=== PATIENT | female | born 1960 | race Caucasian/White ===

== ENCOUNTER 2020-07-24 11:00 | Day surgery (SDC) | payer MEDICARE, MEDICAID, OTHER ==
[~2020-07-24 11:00] MED LIST: Lactated Ringers 1,000 ML IV SCH; Midazolam 1 MG/ML 2 ML SDV ONE; Propofol 200 MG/20 ML SDV ONE; Sodium Chloride 0.9% 10 ML Syringe FLUSH PRN
--- NOTE | 2020-07-24 13:16 | PCM.OPNOTE ---
- General Post-Op/Procedure Note Date of Surgery/Procedure: 07/24/20 Operative Procedure(s): Colonoscopy with polypectomy Findings: Sig colon polyp Pre Op Diagnosis: Hx Polyps Post-Op Diagnosis: Same Anesthesia Technique: MAC Primary Surgeon: Marques Lee Anesthesia Provider: Taylor Wiseman Pathology: Sig colon polyp at 20 cm EBL in mLs: 0 Complications: None Condition: Good
--- NOTE | 2020-07-24 14:55 | OR ---
Date of Procedure: 07/24/2020 PREOPERATIVE DIAGNOSIS: History of colon polyps. POSTOPERATIVE DIAGNOSIS: Sigmoid colon polyps. PROCEDURE: Colonoscopy with polypectomy. ANESTHESIA: IV sedation. PROCEDURE IN DETAIL: Patient was brought to the procedure room where she was placed on her left side and IV sedation administered. Digital rectal exam was performed, which was normal. Colonoscope was inserted and advanced to the level of the cecum without difficulty. Cecal position was confirmed by identifying the appendiceal lumen and ileocecal valve. Prep was good and surfaces were well visualized. Upon withdrawing the scope, the ascending, transverse, and descending colon were normal in appearance. Sigmoid colon had a 6 mm sessile polyp located 20 cm from the anal verge that was removed with a cautery snare and retrieved in the polyp trap. Rectum was normal. I was unable to retroflex because of her narrow rectum. Air was removed and the scope withdrawn. Patient tolerated the procedure well and returned to recovery in stable condition. Patient will be contacted by her primary provider with the pathology report when it returns. She should undergo a repeat colonoscopy again in 5 years. JOVAN RODNEY MD /[id number]
== END 2020-07-24 14:15 | disposition home or self-care (01) ==
LOC: LL.SDS 11:00
PROVIDERS: ATTEND Surgery
DX: Z12.11 Encounter for screening for malignant neoplasm of colon (principal); D12.5 Benign neoplasm of sigmoid colon; Z01.812 Encounter for preprocedural laboratory examination; Z20.828 Contact with and (suspected) exposure to other viral communicable diseases; I10 Essential (primary) hypertension; E78.5 Hyperlipidemia, unspecified; E11.9 Type 2 diabetes mellitus without complications; G25.81 Restless legs syndrome; E88.81 Metabolic syndrome and other insulin resistance; F32.9 Major depressive disorder, single episode, unspecified; M25.572 Pain in left ankle and joints of left foot; Z86.010 Personal history of colon polyps; G89.29 Other chronic pain; Z79.899 Other long term (current) drug therapy; Z88.0 Allergy status to penicillin; Z88.2 Allergy status to sulfonamides
CPT/HCPCS: 00812; 45385; 82962; J2250; J2704; J7120; U0002; 88305